=== PATIENT | female | born 1955 | race Two or more races ===

== ENCOUNTER → 2017-03-08 | Outpatient (REF) | payer OTHER | LOC: M SFHCWAGY 15:28 | PROVIDERS: ATTEND Family Medicine | DX: Z11.3 Encounter for screening for infections with a predominantly sexual mode of transmission (principal); Z12.4 Encounter for screening for malignant neoplasm of cervix | CPT/HCPCS: 87491; 87591; G0123 ==

== ENCOUNTER 2017-04-22 16:35 | Emergency (ER) | payer MEDICARE, OTHER ==
[~2017-04-22] VITALS: Ht 167.6 cm; Wt 56.8 kg
[2017-04-22] MEDS ORDERED: PROP80TA PO (16:52)
[2017-04-22] MEDS ORDERED: PROV100T25 PO (16:52)
[2017-04-22] MEDS ORDERED: KETO0.02 OU (16:52)
[2017-04-22] MEDS ORDERED: GLUC500C5 PO (16:52)
[2017-04-22] MEDS ORDERED: TAMO10TA PO (16:52)
[2017-04-22] MEDS ORDERED: AZEL0.1S3 (16:52)
[2017-04-22] MEDS ORDERED: VIIB40TA PO (16:52)
[2017-04-22] MEDS ORDERED: RANI150T PO (16:52)
[2017-04-22] MEDS ORDERED: MONT10TA2 PO (16:52)
[2017-04-22] MEDS ORDERED: TRAZ-136 PO (16:52)
[2017-04-22] MEDS ORDERED: PRIM250T8 PO (16:52)
[2017-04-22] MEDS ORDERED: ARMO1TAB PO (16:52)
[2017-04-22] MEDS ORDERED: FLUTISP (16:52)
[2017-04-22] MEDS ORDERED: UBIQ100C3 PO (16:52)
[2017-04-22] MEDS ORDERED: CLON1TAB PO (16:52)
[2017-04-22] MEDS ORDERED: ASPI81TA85 PO (16:52)
[2017-04-22] MEDS ORDERED: ARIP5TA PO (16:52)
[2017-04-22] MEDS ORDERED: CETI10TA PO (16:52)
[2017-04-22] MEDS ORDERED: NS 500 ML IV ONE (19:00)
[2017-04-22] MEDS ORDERED: IPRATROPIUM 0.5MG/ALBUTEROL 2.5MG INH SOL UD 3ML (DUONEB)(J7620) NEB ONE (19:00)
--- NOTE | 2017-04-22 19:31 | REP ---
Chest two views HISTORY: Cough Comparison: 10/24/2012 The lungs are clear. The heart is normal in size. The pulmonary vasculature is normal in appearance. The bony structure is intact. IMPRESSION: No acute disease. Signed by Gordo Vargas MD 04/22/2017 07:22 P
[2017-04-22 19:34] LABS: BASO % 0.5 % (0.0-1.0); EOS # 0.2 K/mm3 (0.0-0.50); EOS % 1.6 % (0.0-3.0); LARGE UNSTAINED CELL # 0.1 K/mm3 (0.0-0.4); LARGE UNSTAINED CELL % 1.2 % (0.0-4.0); LYMPH # 1.7 K/mm3 (1.5-4.5); LYMPH % 14.8 % (24.0-44.0); MEAN CORPUSCULAR HGB CONC 33.1 g/dl (32.0-36.5); MEAN CORPUSCULAR VOLUME 96.6 fl (80.0-96.0); MONO # 0.4 K/mm3 (0.0-0.8); MONO % 3.6 % (0.0-5.0); NEUTROPHILS # 8.4 K/mm3 (1.8-7.7); NEUTROPHILS % 78.3 % (36.0-66.0); PLATELET COUNT, AUTOMATED 328 k/mm3 (150-450); RED CELL DISTRIBUTION WIDTH 11.5 % (11.5-14.5); WHITE BLOOD COUNT 10.8 K/mm3 (4.0-10.0)
[2017-04-22 19:57] LABS: ALBUMIN 3.3 GM/DL (3.2-5.2); ALBUMIN/GLOBULIN RATIO 0.65 (1.00-1.93); BILIRUBIN,DIRECT 0.2 MG/DL (0.0-0.2); BILIRUBIN,TOTAL 0.5 MG/DL (0.2-1.0); TOTAL PROTEIN 8.4 GM/DL (6.4-8.2)
[2017-04-22 19:58] LABS: ANION GAP 10 MEQ/L (8-16); BLOOD UREA NITROGEN 7 MG/DL (7-18); CARBON DIOXIDE LEVEL 30 MEQ/L (21-32); CHLORIDE LEVEL 101 MEQ/L (98-107); CREATININE FOR GFR 0.83 MG/DL (0.55-1.02); GLOMERULAR FILTRATION RATE > 60.0 (>45); GLUCOSE, FASTING 95 MG/DL (80-110); POTASSIUM SERUM 3.3 MEQ/L (3.5-5.1); SODIUM LEVEL 141 MEQ/L (136-145)
[2017-04-22 20:01] VITALS: BP 140/64
[2017-04-22] MEDS ORDERED: ALBU17IN INH (20:31)
[2017-04-22] MEDS ORDERED: PRED20TA PO (20:31)
[2017-04-22] MEDS ORDERED: DOXY100C37 PO (20:31)
[2017-04-22] MEDS ORDERED: DOXYCYCLINE HYCLATE 100 MG TAB PO ONE (20:45)
[2017-04-22] MEDS ORDERED: ALBUTEROL 90 MCG/ACT 8GM HFA INHALER INH ONE (20:45)
[2017-04-22] MEDS ORDERED: predniSONE 20 MG TAB PO ONE (20:45)
--- NOTE | 2017-04-23 10:40 | ECGEPIP ---
Stationary ECG Study [facility] - ED Test Date: 2017-04-22 Pat Name: GEORGINA HADLEY Department: Room: - Gender: F Product Consultant: ct : 1955 Requested By: Hank June PA-C Order Number: [id number] Reading MD: Jolene Mckee Measurements Intervals [place] Rate: 96 P: -9 NC: 115 QRS: 68 QRSD: 87 T: 7 QT: 361 QTc: 456 Interpretive Statements SINUS RHYTHM WITH SHORT NC INTERVAL NSTTW ABNORMALITY INCREASED RATE 10/24/12 Electronically Signed On 04-23-2017 10:40:02 EDT by Jolene Mckee
== END 2017-04-22 20:50 | disposition home or self-care (01) ==
LOC: M ED 16:35
DX: J01.90 Acute sinusitis, unspecified (principal); J20.9 Acute bronchitis, unspecified; E87.6 Hypokalemia; I10 Essential (primary) hypertension; J44.9 Chronic obstructive pulmonary disease, unspecified; J30.2 Other seasonal allergic rhinitis; Z87.891 Personal history of nicotine dependence; Z79.82 Long term (current) use of aspirin; Z79.899 Other long term (current) drug therapy; Z91.010 Allergy to peanuts

== ENCOUNTER → 2017-11-09 | Outpatient (REF) | payer MEDICARE, OTHER ==
[2017-11-09 17:25] LABS: INFLUENZA A AMPLIFICATION NEGATIVE (NEGATIVE); INFLUENZA B AMPLIFICATION NEGATIVE (NEGATIVE)
== END ==
LOC: M LAB REF 16:41
DX: J11.1 Influenza due to unidentified influenza virus with other respiratory manifestations (principal); R19.7 Diarrhea, unspecified; R05 Cough
CPT/HCPCS: 87507

== ENCOUNTER → 2018-07-04 | Outpatient (REF) | payer OTHER | LOC: M SFHCWAGY 14:05 | DX: Z12.4 Encounter for screening for malignant neoplasm of cervix (principal) | CPT/HCPCS: G0123 ==

== ENCOUNTER → 2018-12-27 | Outpatient (REF) | payer MEDICARE, OTHER ==
[~2018-12-27] MED LIST: ALBU17IN INH; ARIP1TAB6 PO; ARMO1TAB PO; ASPI81TA85 PO; AZEL0.1S3; AZEL1SPR3; CETI10TA PO; CHLO0.5L OR; CLON1TAB8 PO; DOXY100C37 PO; EPIP0.3I2 IM; FLUTISP; GLUC500C5 PO; GNP1000T11 PO; IMIT100T PO; KETO0.02 OU; LOPE2CA PO; MONT10TA2 PO; NATU1TAB5 PO; PRED20TA PO; PRIM250T8 PO; PRIM50TA6 PO; PROP80TA PO; PROV100T25 PO; RA K500C PO; RANI150T PO; SUPETAB44 PO; TAMO10TA PO; TRAZ-163 PO; UBIQ100C3 PO; UBIQ200C PO; VENTAER INH; VIIB40TA PO; WELLTAB40 PO; [UNRECOGNIZED DRUG - CODE]; [UNRECOGNIZED DRUG - OTHER] PO
== END ==
LOC: M LAB REF 16:03
PROVIDERS: ATTEND Internal Medicine Gastroenterology
DX: K58.0 Irritable bowel syndrome with diarrhea (principal)

== ENCOUNTER 2019-01-05 07:02 | Day surgery (SDC) | payer MEDICARE, OTHER ==
[~2019-01-05] VITALS: Ht 167.6 cm; Wt 53.5 kg
[2019-01-05] MEDS ORDERED: LIDOCAINE 2% INJ 100 MG/5 ML SDV (FOR ANES.) As Ordered ONE (07:11)
[2019-01-05] MEDS ORDERED: PROPOFOL 200 MG/20 ML VIAL As Ordered ONE (07:11)
[2019-01-05] MEDS ORDERED: NS 1,000 ML IV ONE (07:15)
--- NOTE | 2019-01-05 08:42 | ROOR ---
Patient Name: Agnieszka Henry Procedure Date: 01/05/2019 8:26 AM Date of : 1955 Age: 63 Room: [facility] Gender: Female Note Status: Finalized Procedure: Upper Endoscopy + Biopsies Indications: Heartburn, Exclusion of La's esophagus Providers: Garrett Burden MD Referring MD: Vania MADRIGAL [facility] Vania MADRIGAL [facility], Admin. Requesting Provider: Medicines: Monitored Anesthesia Care Complications: No immediate complications. Procedure: Pre-Anesthesia Assessment: - The heart rate, respiratory rate, oxygen saturations, blood pressure, adequacy of pulmonary ventilation, and response to care were monitored throughout the procedure. The Endoscope was introduced through the mouth, and advanced to the second part of duodenum. The upper GI endoscopy was accomplished without difficulty. The patient tolerated the procedure well. Findings: The Z-line was irregular and was found 40 cm from the incisors. Multiple biopsies were obtained with cold forceps for evaluation to rule out La's Esophagus randomly at the gastroesophageal junction. A small hiatal hernia was present. No other significant abnormalities were identified in a careful examination of the stomach. The exam of the duodenum was otherwise normal. Impression: - Z-line irregular, 40 cm from the incisors. - Small hiatal hernia. - Multiple biopsies were obtained at the gastroesophageal junction. - The examination was otherwise normal. Recommendation: - Patient has a contact number available for emergencies. The signs and symptoms of potential delayed complications were discussed with the patient. Return to normal activities tomorrow. Written discharge instructions were provided to the patient. - High fiber diet. - Discharge patient to home. - Continue present medications. - Await pathology results. - Telephone GI clinic for pathology results in 1 week. - The findings and recommendations were discussed with the patient's family. Garrett Burden MD Garrett Burden MD 01/05/2019 8:42:16 AM Electronically signed by Garrett Burden MD Number of Addenda: 0 Note Initiated On: 01/05/2019 8:26 AM Estimated Blood Loss: Estimated blood loss: none.
--- NOTE | 2019-01-05 08:56 | ROOR ---
Patient Name: Agnieszka Henry Procedure Date: 01/05/2019 8:27 AM Date of : 1955 Age: 63 Room: [facility] Gender: Female Note Status: Finalized Procedure: Total Colonoscopy to Cecum Indications: High risk colon cancer surveillance: Personal history of colonic polyps, Incidental - Change in bowel habits Providers: Garrett Burden MD Referring MD: Vania MADRIGAL [facility] Vania MADRIGAL [facility], Admin. Requesting Provider: Medicines: Monitored Anesthesia Care Complications: No immediate complications. Procedure: Pre-Anesthesia Assessment: - The heart rate, respiratory rate, oxygen saturations, blood pressure, adequacy of pulmonary ventilation, and response to care were monitored throughout the procedure. The Colonoscope was introduced through the anus and advanced to the cecum, identified by appendiceal orifice and ileocecal valve. The colonoscopy was performed without difficulty. The patient tolerated the procedure well. The quality of the bowel preparation was excellent. Findings: The perianal and digital rectal examinations were normal. Non-bleeding internal hemorrhoids were found during retroflexion. The hemorrhoids were small and Grade I (internal hemorrhoids that do not prolapse). Multiple small and large-mouthed diverticula were found in the recto-sigmoid colon, sigmoid colon and descending colon. The exam was otherwise without abnormality on direct and retroflexion views. Impression: - Non-bleeding internal hemorrhoids. - Diverticulosis in the recto-sigmoid colon, in the sigmoid colon and in the descending colon. - The examination was otherwise normal on direct and retroflexion views. - No specimens collected. - The exam was otherwise normal to the cecum. Recommendation: - Patient has a contact number available for emergencies. The signs and symptoms of potential delayed complications were discussed with the patient. Return to normal activities tomorrow. Written discharge instructions were provided to the patient. - High fiber diet. - Discharge patient to home. - Continue present medications. - Repeat colonoscopy in 5 years for surveillance. - Return to referring physician. - The findings and recommendations were discussed with the patient's family. Garrett Burden MD Garrett Burden MD 01/05/2019 8:55:50 AM Electronically signed by Garrett Burden MD Number of Addenda: 0 Note Initiated On: 01/05/2019 8:27 AM Estimated Blood Loss: Estimated blood loss: none.
[2019-01-05 09:35] VITALS: BP 99/53
== END 2019-01-05 09:50 | disposition home or self-care (01) ==
LOC: M OPP 07:02
PROVIDERS: ATTEND Internal Medicine Gastroenterology
DX: K64.0 First degree hemorrhoids (principal); K57.30 Diverticulosis of large intestine without perforation or abscess without bleeding; K58.0 Irritable bowel syndrome with diarrhea; Z86.010 Personal history of colon polyps; K22.8 Other specified diseases of esophagus; K44.9 Diaphragmatic hernia without obstruction or gangrene; R12 Heartburn; G47.30 Sleep apnea, unspecified; K21.9 Gastro-esophageal reflux disease without esophagitis; Z79.82 Long term (current) use of aspirin; Z79.899 Other long term (current) drug therapy; Z87.891 Personal history of nicotine dependence; Z91.010 Allergy to peanuts

== ENCOUNTER → 2019-06-04 | Outpatient (CLI) | payer MEDICARE, OTHER ==
[~2019-06-04] MED LIST changes: +E-Z-GAS II EFFERVESCENT PACKET (SODIUM BICARB./CITRIC ACID/SIMETHICONE) As Ordered ONE; +E-Z-HD 98% w/w 340GM SUSP BTL As Ordered ONE; +E-Z-PAQUE 96% w/w SUSP 176GM BTL As Ordered ONE; +EQ S0.65; -[UNRECOGNIZED DRUG - CODE]
--- NOTE | 2019-06-04 16:37 | REP ---
UPPER GI AIR CONTRAST AND SMALL BOWEL FOLLOW THROUGH The procedure was performed under the direct supervision of Dr. Fernandez. The images were reviewed with Dr. Fernandez The roof promenade tile setter film shows no organomegaly or pathological masses. The intestinal gas pattern is non-specific. Liquid barium and gas producing crystals were given in the erect position as well as liquid barium in the prone oblique position in order to perform a double contrast upper GI examination. Additionally liquid barium was given at the end of the examination in order to perform a small bowel follow through. The oral and pharyngeal stages of deglutition are unremarkable. Esophageal transport is prompt and efficient and there is no esophagitis, stricture or mucosal ring. There is a small sliding-type hiatal hernia. Gastroesophageal reflux is not demonstrated on this examination. The stomach edwards are normally outlined . The rugal folds are smooth and regular. There is no gastritis neoplasm or ulcer disease. In the duodenal bulb there is a barium collection with a surrounding rim of lucency consistent with an ulcer crater and surrounding edema. The visualized portion of the proximal small bowel appears normal in course and caliber. The barium column was followed through the small bowel to the level of the terminal ileum. Small bowel transit time is approximately 30 minutes . During fluoroscopy gentle palpation shows all loops are freely movable and pliable. There are no fixed or angulated loops. The small bowel mucosal pattern is normal in course and caliber. There is no transition to suggest a partial small-bowel obstruction. Spot filming of the terminal ileum shows it to be unremarkable. Impression: 1. There is a small sliding-type hiatal hernia. 2. There is an ulcer crater with surrounding edema in the duodenal bulb. 2.7 minutes of fluoro time was utilized for this procedure. Electronically Signed by JANELL Bell 06/04/2019 03:23 P Electronically Signed by Fazal Fernandez MD 06/04/2019 04:27 P
== END ==
LOC: M RAD 08:49
PROVIDERS: ATTEND Internal Medicine Gastroenterology
DX: R19.7 Diarrhea, unspecified (principal); R10.9 Unspecified abdominal pain

== ENCOUNTER → 2019-06-16 | Outpatient (REF) | payer MEDICARE, OTHER ==
[~2019-06-16] MED LIST changes: -E-Z-GAS II EFFERVESCENT PACKET (SODIUM BICARB./CITRIC ACID/SIMETHICONE) As Ordered ONE; -E-Z-HD 98% w/w 340GM SUSP BTL As Ordered ONE; -E-Z-PAQUE 96% w/w SUSP 176GM BTL As Ordered ONE
[2019-06-16 14:34] LABS: C REACTIVE PROTEIN QUANTITATIV < 0.30 MG/DL (0.00-0.30)
[2019-06-19 00:07] LABS: CHROMOGRANIN A 3 nmol/L (0-5); TISSUE TRANSGLUTAMINASE IgA <2 U/mL (0-3)
== END ==
LOC: M LABDRAW1 13:46
PROVIDERS: ATTEND Internal Medicine Gastroenterology
DX: K58.0 Irritable bowel syndrome with diarrhea (principal); Z79.899 Other long term (current) drug therapy; Z79.82 Long term (current) use of aspirin

== ENCOUNTER → 2019-06-25 | Outpatient (REF) | payer MEDICARE, OTHER ==
[2019-07-04 00:07] LABS: CALPROTECTIN STOOL <16 ug/g (0-120); PANCREATIC ELASTASE STOOL >500 (>200)
== END ==
LOC: M LAB REF 11:23
PROVIDERS: ATTEND Internal Medicine Gastroenterology
DX: K58.0 Irritable bowel syndrome with diarrhea (principal)

== ENCOUNTER → 2019-06-26 | Outpatient (REF) | payer MEDICARE, OTHER | LOC: M LAB REF 11:27 | PROVIDERS: ATTEND Internal Medicine Gastroenterology | DX: K58.0 Irritable bowel syndrome with diarrhea (principal) ==

== ENCOUNTER → 2019-08-10 | Outpatient (REF) | payer MEDICARE, OTHER | LOC: M LAB REF 09:31 | PROVIDERS: ATTEND Internal Medicine Gastroenterology | DX: K58.0 Irritable bowel syndrome with diarrhea (principal) ==

== ENCOUNTER → 2019-08-11 | Outpatient (CLI) | payer MEDICARE, OTHER | LOC: M LAB 08:16 | PROVIDERS: ATTEND Internal Medicine Gastroenterology | DX: K58.0 Irritable bowel syndrome with diarrhea (principal) ==

== ENCOUNTER → 2019-10-09 | Outpatient (REF) | payer MEDICARE, OTHER ==
[~2019-10-09] MED LIST changes: -MONT10TA2 PO; +MONT10TA4 PO; -TRAZ-163 PO; +TRAZ-257 PO
== END ==
LOC: M PLALAB 11:23
PROVIDERS: ATTEND Family Medicine
DX: Z12.4 Encounter for screening for malignant neoplasm of cervix (principal); R87.625 Unsatisfactory cytologic smear of vagina
CPT/HCPCS: G0101; G0123; G0463

== ENCOUNTER → 2020-01-01 | Outpatient (REF) | payer MEDICARE, OTHER | LOC: M PLALAB 09:18 | PROVIDERS: ATTEND Family Medicine | DX: Z12.4 Encounter for screening for malignant neoplasm of cervix (principal); N95.8 Other specified menopausal and perimenopausal disorders | CPT/HCPCS: G0123; G0463 ==

== ENCOUNTER → 2020-09-17 | Outpatient (REF) | payer MEDICARE, OTHER ==
[~2020-09-17] MED LIST changes: -ASPI81TA85 PO; +ASPI81TA86 PO; -MONT10TA4 PO; +MONT5TAB2 PO
== END ==
LOC: M LAB 22:08
PROVIDERS: ATTEND Physician Assistant
DX: Z11.59 Encounter for screening for other viral diseases (principal)

== ENCOUNTER → 2021-03-29 | Outpatient (CLI) | payer OTHER ==
[~2021-03-29] MED LIST changes: -DOXY100C37 PO; +DOXY1CAP62 PO; +MONT10TA10 PO; -MONT5TAB2 PO
--- NOTE | 2021-03-29 14:59 | REP ---
INDICATION: RT SHOULDER PAIN ? RCT. Right shoulder pain after a fall October of 2020. COMPARISON: No comparison radiographs are available.. TECHNIQUE: Axial, oblique coronal, and oblique sagittal imaging planes utilized. T1 and T2 weighted scans are included with without fat saturation in the usual fashion. FINDINGS: The glenohumeral and acromioclavicular joints are normally aligned. Cortical and medullary bone signal intensity are normal. There is no evidence of occult fracture. There is a small subacromial subdeltoid bursal effusion. A tiny amount of glenohumeral joint effusion is seen. There is inferolateral acromion process spurring and hypertrophy. There is AC joint osteoarthritic spurring as well. There is a small subcentimeter periarticular cyst along the inferior and anterior margin of the AC joint. There is heterogeneous increased signal intensity in the attenuated distal supraspinatus tendon consistent with intrasubstance supraspinatus tear. There is no evidence of supraspinatus muscle edema or tendon retraction. The subscapularis and infraspinatus tendons appear intact. The biceps tendon is in the bony bicipital groove and biceps labral complex appears intact. No superior labral tear is seen. The anterior and posterior labral cartilage appear intact. There is mild glenohumeral chondromalacia. No periarticular mass is seen. IMPRESSION: Advanced tendinosis in the supraspinatus tendon with thin thinning and intrasubstance increased signal consistent with advanced tendinosis partial thickness tendon tear. There is acromion process is spurring and hypertrophy. AC joint hypertrophy is present. Subacromial subdeltoid bursal fluid is seen. <Electronically signed by Jose Enrique Peralta > 03/29/21 [id number]
== END ==
LOC: M PLAIMG 13:19
PROVIDERS: ATTEND Nurse Practitioner Family
DX: M75.31 Calcific tendinitis of right shoulder (principal)

== ENCOUNTER → 2021-05-26 | Outpatient (CLI) | payer OTHER ==
--- NOTE | 2021-05-26 10:48 | REP ---
INDICATION: Follow-up probably benign sub cm sized solid appearing nodule at the 9 o'clock position COMPARISON: 09/01/2020 TECHNIQUE: Diagnostic right breast ultrasonography was obtained at the 9 o'clock position using anatomical intelligence and shear wave elastography. FINDINGS: The 3 mm sized solid appearing nodule seen at the 9 o'clock position on the prior exam is completely unchanged today. Shear wave elastography again shows very low and in fact lower kPa values today. IMPRESSION: ACR category 2 benign finding right breast at 9 o'clock as described above. <Electronically signed by Himanshu Arias > 05/26/21 [id number]
== END ==
LOC: M WHC 08:00
PROVIDERS: ATTEND Family Medicine
DX: R92.2 Inconclusive mammogram (principal)

== ENCOUNTER 2021-09-27 16:56 | Emergency (ER) | payer OTHER ==
[~2021-09-27] VITALS: Ht 167.6 cm; Wt 63.6 kg
[~2021-09-27 16:56] MED LIST changes: +DOXY-443 PO; -DOXY1CAP62 PO; -MONT10TA10 PO; +MONT10TA97 PO
[2021-09-27] MEDS ORDERED: IBUPROFEN 600MG TAB PO ONE (19:30)
[2021-09-27 20:37] VITALS: BP 123/62
== END 2021-09-27 20:39 | disposition home or self-care (01) ==
LOC: M ED 16:56
DX: S82.301A Unspecified fracture of lower end of right tibia, initial encounter for closed fracture (principal); S80.01XA Contusion of right knee, initial encounter; S63.502A Unspecified sprain of left wrist, initial encounter; W01.0XXA Fall on same level from slipping, tripping and stumbling without subsequent striking against object, initial encounter; Y92.009 Unspecified place in unspecified non-institutional (private) residence as the place of occurrence of the external cause; Y93.9 Activity, unspecified; Y99.9 Unspecified external cause status; Z91.010 Allergy to peanuts

== ENCOUNTER → 2021-10-06 | Outpatient (CLI) | payer OTHER | LOC: M SOG 14:53 | PROVIDERS: ATTEND Orthopaedic Surgery Hand Surgery | DX: S82.831A Other fracture of upper and lower end of right fibula, initial encounter for closed fracture (principal); X58.XXXA Exposure to other specified factors, initial encounter; Y92.9 Unspecified place or not applicable; Y93.9 Activity, unspecified; Y99.9 Unspecified external cause status ==

== ENCOUNTER → 2021-10-13 | Outpatient (CLI) | payer OTHER | LOC: M SOG 11:32 | PROVIDERS: ATTEND Orthopaedic Surgery Hand Surgery | DX: S82.831D Other fracture of upper and lower end of right fibula, subsequent encounter for closed fracture with routine healing (principal) ==

== ENCOUNTER → 2021-10-18 | Outpatient (CLI) | payer OTHER | LOC: M WHC 15:22 | PROVIDERS: ATTEND Family Medicine | DX: Z12.31 Encounter for screening mammogram for malignant neoplasm of breast (principal) ==

== ENCOUNTER → 2021-12-06 | Outpatient (CLI) | payer OTHER | LOC: M SOG 08:04 | PROVIDERS: ATTEND Physician Assistant | DX: S82.831A Other fracture of upper and lower end of right fibula, initial encounter for closed fracture (principal); X58.XXXA Exposure to other specified factors, initial encounter; Y92.9 Unspecified place or not applicable ==

== ENCOUNTER → 2022-01-02 | Outpatient (CLI) | payer OTHER ==
[~2022-01-02] MED LIST changes: +METHACHOLINE KIT (J7674) INH ONE
== END ==
LOC: M CARPUL 12-26 08:54
PROVIDERS: ATTEND Nurse Practitioner Adult Health
DX: R06.02 Shortness of breath (principal)
CPT/HCPCS: 94070; 95070; J7674

== ENCOUNTER → 2022-06-20 | Outpatient (CLI) | payer OTHER ==
[~2022-06-20] MED LIST changes: -METHACHOLINE KIT (J7674) INH ONE; -TAMO10TA PO; +TAMO10TA8 PO
== END ==
LOC: M PLAIMG 16:03
PROVIDERS: ATTEND Nurse Practitioner Adult Health
DX: R05.9 Cough, unspecified (principal)

== ENCOUNTER → 2022-07-16 | Outpatient (CLI) | payer OTHER | LOC: M PLAIMG 13:07 | PROVIDERS: ATTEND Nurse Practitioner Adult Health | DX: R05.9 Cough, unspecified (principal); R91.8 Other nonspecific abnormal finding of lung field ==

== ENCOUNTER → 2023-05-29 | Outpatient (CLI) | payer OTHER, MEDICARE ==
[~2023-05-29] MED LIST changes: +FLUT50SP17; -FLUTISP; -KETO0.02 OU; +KETO5DRO33 OU
== END ==
LOC: M PLAIMG 09:11
PROVIDERS: ATTEND Nurse Practitioner Adult Health
DX: R91.8 Other nonspecific abnormal finding of lung field (principal)